=== PATIENT | male | born 1940 | race Two or more races ===

== ENCOUNTER 2025-06-14 17:49 | Emergency (ER) | payer OTHER ==
[~2025-06-14] VITALS: Ht 177.8 cm; Wt 46.3 kg
[2025-06-14] MEDS ORDERED: TAMSULOSIN HCL0.4 MG (18:31)
[2025-06-14 18:34] VITALS: BP 137/83; O2SAT 98
[2025-06-14 19:56] LABS: BASO % 0.5 % (0.1-1.2); EOS # 0.03 (0.04-0.54); EOS % 0.4 % (0.7-7.0); LYMPH # 1.70 (1.18-3.74); LYMPH % 20.0 % (19.3-53.1); MEAN PLATELET VOLUME 11.70 fl (9.4-12.4); MONO # 0.87 (0.24-0.82); MONO % 10.3 % (4.7-12.5); NEUT # 5.80 (1.56-6.13); NEUT % 68.3 % (34.0-71.1); RED CELL DISTRIBUTION WIDTH 14.5 % (11.6-14.4)
[2025-06-14 20:36] LABS: ALT/SGPT 32.0 U/L (12-78); AST/SGOT 28.0 U/L (15-37); BILIRUBIN TOTAL 1.54 mg/dL (0.3-1.2); BUN CREA RATIO 16.0 (7.0-25.0); CREATININE SERUM 1.01 mg/dL (0.70-1.30); GFR 70.38; GLOBULINA 4.2 G/DL (2.4-3.5); GLUCOSE FASTING 119.0 mg/dL (65-100); OSMOLALITY SERUM 276.0 MOSM/KG (275-295)
[2025-06-14 20:48] LABS: URINE APPEARANCE Clear; URINE BILIRRUBIN Negative (NEGATIVE); URINE BLOOD Moderate; URINE COLOR Yellow; URINE GLUCOSE Negative (NEGATIVE); URINE KETONE Trace (NEGATIVE); URINE LEUKOCYTE Negative; URINE NITRATE Negative; URINE PROTEIN Negative (NEGATIVE); URINE UROBILINOGEN 0.2 E.U./dl
[2025-06-14 20:49] LABS: URINE BACTERIA 14.4 uL (0.0-1933); URINE EPITHELIAL CELLS 3.0 uL (0.0-38.8); URINE RBC 296.6 uL (0.0-20.8); URINE WBC 8.2 uL (0.0-23.2)
[2025-06-14 21:10] LABS: URINE CAST 0.43 uL (0.0-1.40)
== END 2025-06-14 22:10 | disposition home or self-care (01) ==
LOC: ER 17:50
PROVIDERS: General Practice
DX: R33.9 Retention of urine, unspecified (principal); R10.2 Pelvic and perineal pain; Z88.2 Allergy status to sulfonamides